=== PATIENT | female | born 1955 | race Hispanic/Latino ===

== ENCOUNTER 2020-08-16 07:25 | Emergency (ER) | payer OTHER ==
[2020-08-16] MEDS ORDERED: DIAZEPAM 5 MG/ML 2 ML SYG ONE (07:50)
[2020-08-16] MEDS ORDERED: KETOROLAC TROMETHAMINE 30MG/ML ONE (07:50)
== END 2020-08-16 08:40 | disposition home or self-care (01) ==
LOC: EDH 07:25
DX: M54.16 Radiculopathy, lumbar region (principal); I10 Essential (primary) hypertension; Z90.49 Acquired absence of other specified parts of digestive tract; Z90.710 Acquired absence of both cervix and uterus
CPT/HCPCS: 96372 ×2; 99284; J1885; J3360

== ENCOUNTER → 2022-12-24 | Outpatient (CLI) | payer OTHER | END | disposition home or self-care (01) | LOC: RAH 11:15 | PROVIDERS: ATTEND Family Medicine | DX: Z12.31 Encounter for screening mammogram for malignant neoplasm of breast (principal) | CPT/HCPCS: 77067 ==